=== PATIENT | male | born 1985 ===

== ENCOUNTER 2016-10-02 05:24 | Emergency (ER) | payer MEDICAID ==
[2016-10-02 05:24] VITALS: BMI 31.4
[2016-10-02 05:44] VITALS: BP 150/91; PULSE 109; RESP 16; TEMP 98; O2SAT 99
--- NOTE | 2016-10-02 06:28 | ED PDOC ---
HPI: Back Time Seen by Provider: 10/02/16 05:36 Chief Complaint (Nursing): Back Pain Chief Complaint (Provider): back pain History Per: Patient History/Exam Limitations: no limitations Onset/Duration Of Symptoms: Days (3) Current Symptoms Are (Timing): Still Present Severity: Moderate Pain Scale Rating Of: 8 Previous Symptoms: Chronic Pain Associated Symptoms: None Exacerbating Factor(s): Movement Additional Complaint(s): Patient is a 31 yo male with long standing history chronic back pain under pain management contract at [facility]. Patient on Fentanyl patch but reports having breakthrough pain. He denies any injury or fall. Pain is low back and upper back. Low back pain radiates to LE B/L. He denies urinary/fecal incontinence or retention. No numbness of LE or trouble with ambulation. Past Medical History Reviewed: Historical Data, Nursing Documentation, Vital Signs Vital Signs: Last Vital Signs Temp 98.0 F 10/02/16 05:40 Pulse 109 H 10/02/16 05:40 Resp 16 10/02/16 05:40 BP 150/91 H 10/02/16 05:40 Pulse Ox 99 10/02/16 05:40 - Medical History PMH: Back Problems, Hypothyroidism, Pancreatitis, Chronic Kidney Disease ( kidney cyst) - Surgical History Surgical History: Back Surgery (x2), Endoscopy - Family History Family History: States: Unknown Family Hx - Immunization History Hx Tetanus Toxoid Vaccination: No Hx Influenza Vaccination: No Hx Pneumococcal Vaccination: No - Home Medications Home Medications: Ambulatory Orders Medication Instructions Recorded Levothyroxine Sodium [Unithroid] 25 mcg PO DAILY 04/23/16 Pantoprazole [Protonix] 40 mg PO DAILY 04/23/16 Dicyclomine [Bentyl] 20 mg PO TID #21 tab 07/08/16 Ondansetron ODT [Zofran ODT] 4 mg PO Q8 PRN #10 odt 07/08/16 - Allergies Allergies/Adverse Reactions: Allergies Allergy/AdvReac Type Severity Reaction Status Date / Time No Known Allergies Allergy Verified 07/08/16 01:21 Review of Systems Musculoskeletal: Positive for: Back Pain Physical Exam - Reviewed Nursing Documentation Reviewed: Yes - Physical Exam Appears: Positive for: Uncomfortable Head Exam: Positive for: ATRAUMATIC, NORMOCEPHALIC Skin: Positive for: Normal Color, Warm, Dry Eye Exam: Positive for: Normal appearance, EOMI, PERRL ENT: Positive for: Normal ENT Inspection Respiratory: Positive for: Normal Breath Sounds. Negative for: Crackles, Rales , Wheezing Gastrointestinal/Abdominal: Positive for: Normal Exam, Bowel Sounds, Soft. Negative for: Tenderness Back: Positive for: Normal Inspection, Muscle Spasm. Negative for: L CVA Tenderness, R CVA Tenderness, Vertebral Tenderness Neurologic/Psych: Positive for: Alert, Oriented. Negative for: Motor/Sensory Deficits - ECG O2 Sat by Pulse Oximetry: 99 Medical Decision Making Medical Decision Makin31 year old male with chronic back pain Morphine 5mg IM ordered. Provider explained at length risks of opiate dependency and need for him to refer to his painter and decorator for pain issues. Patient expressed understanding. Dx Chronic Back Pain Stable Disposition - Clinical Impression Clinical Impression: Exacerbation of chronic back pain - Patient ED Disposition Is Patient to be Admitted: No - Disposition Disposition: Routine/Home Disposition Time: 06:31 Condition: STABLE Instructions: Chronic Pain (ED)
== END 2016-10-02 07:16 | disposition home or self-care (01) ==
LOC: H.ER 05:24
DX: M54.9 Dorsalgia, unspecified (principal); N18.9 Chronic kidney disease, unspecified; E03.9 Hypothyroidism, unspecified

== ENCOUNTER 2016-12-04 01:00 | Emergency (ER) | payer MEDICAID ==
[2016-12-04 01:01] VITALS: BMI 31.4
[2016-12-04 01:44] VITALS: BP 160/98; PULSE 102; RESP 18; TEMP 99; O2SAT 99
[2016-12-04] MEDS ORDERED: Sodium Chloride 0.9% 1,000 ML IV STA (02:06)
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
--- NOTE | 2016-12-04 09:06 | CT ---
PROCEDURE: CT HEAD WITHOUT CONTRAST. HISTORY: headache COMPARISON: None available. TECHNIQUE: Axial computed tomography images were obtained through the head/brain without intravenous contrast. Radiation dose: Total exam DLP = 842.01 mGy-cm. This CT exam was performed using one or more of the following dose reduction techniques: Automated exposure control, adjustment of the mA and/or kV according to patient size, and/or use of iterative reconstruction technique. FINDINGS: HEMORRHAGE: No intracranial hemorrhage. BRAIN: No mass effect or edema. No atrophy or chronic microvascular ischemic changes. Please note that MRI with diffusion imaging is more sensitive in the detection of acute ischemic event. VENTRICLES: No hydrocephalus. CALVARIUM: Unremarkable. PARANASAL SINUSES: Unremarkable as visualized. No significant inflammatory changes. MASTOID AIR CELLS: Unremarkable as visualized. No inflammatory changes. OTHER FINDINGS: None. IMPRESSION: No acute intracranial pathology identified. Preliminary impression was provided by virtual radiologic.
== END 2016-12-04 03:43 | disposition home or self-care (01) ==
LOC: H.ER 01:00
DX: G43.909 Migraine, unspecified, not intractable, without status migrainosus (principal); R11.0 Nausea; K85.90 Acute pancreatitis without necrosis or infection, unspecified

== ENCOUNTER 2016-12-22 23:36 | Emergency (ER) | payer MEDICAID ==
[2016-12-22 23:49] VITALS: BMI 32.1
[2016-12-22 23:52] VITALS: BP 145/94; PULSE 108; RESP 15; TEMP 98.1; O2SAT 100
[2016-12-23] MEDS ORDERED: Magnesium Sulfate 2 GM in Sodium Chloride 0.9% 100 ML IV STA (00:01)
[2016-12-23] MEDS ORDERED: levETIRAcetam 500 MG in Sodium Chloride 0.9% 100 ML IVPB ONE (00:02)
[2016-12-23] MEDS ORDERED: Magnesium Sulfate 2 gm/50 ml 2 GM/50 ML BAG ONE (00:03)
[2016-12-23] MEDS ORDERED: Sodium Chloride 0.9% 1,000 ML IV STA (00:10)
[2016-12-23 00:41] LABS: BASO # 0.1 K/uL (0.0-0.2); EOS # 0.2 K/uL (0.0-0.7); EOS % 1.2 % (0.0-4.0); HEMATOCRIT 49.8 % (35.0-51.0); LYMPH # 2.6 K/uL (1.0-4.3); LYMPH % 19.2 % (20.0-40.0); MEAN CELL VOLUME 85.4 fl (80.0-94.0); MEAN CORPUSCULAR HEMOGLOBIN 28.9 pg (27.0-31.0); MEAN CORPUSCULAR HGB CONC 33.8 g/dL (33.0-37.0); MEAN PLATELET VOLUME 8.1 fl (7.2-11.7); MONO % 7.5 % (0.0-10.0); NEUT # 9.6 K/uL (1.8-7.0); NEUT % 71.1 % (50.0-75.0); RED CELL DISTRIBUTION WIDTH 13.5 % (11.5-14.5); WHITE BLOOD COUNT 13.6 K/uL (4.8-10.8)
[2016-12-23 00:53] LABS: ALB/GLOB RATIO 1.5 (1.0-2.1); ALKALINE PHOSPHATASE 104 U/L (38-126); ALT/SGPT 124 U/L (21-72); AST/SGOT 56 U/L (17-59); BILIRUBIN,TOTAL 0.8 mg/dl (0.2-1.3); BLOOD UREA NITROGEN 15 mg/dl (9-20); CALCIUM 9.6 mg/dL (8.4-10.2); CARBON DIOXIDE 25 mmol/L (22-30); CHLORIDE 100 mmol/L (98-107); GFR AFRICAN-AMERICAN > 60; GLUCOSE,RANDOM 178 mg/dL (75-110); POTASSIUM 3.5 MMOL/L (3.6-5.0); SODIUM 138 mmol/l (132-148); TOTAL PROTEIN 8.4 G/DL (6.3-8.2)
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
== END 2016-12-23 01:29 | disposition home or self-care (01) ==
LOC: H.ER 23:36
DX: G43.909 Migraine, unspecified, not intractable, without status migrainosus (principal); M54.9 Dorsalgia, unspecified

== ENCOUNTER 2017-09-22 12:10 | Emergency (ER) | payer MEDICAID, OTHER ==
[2017-09-22 12:11] VITALS: BMI 32.1
[2017-09-22 12:29] VITALS: BP 150/102; PULSE 110; RESP 20; TEMP 98; O2SAT 98
--- NOTE | 2017-09-22 14:03 | RAD ---
PROCEDURE: Radiographs of the Left Shoulder HISTORY: pain s/p fall COMPARISON: No prior. FINDINGS: BONES: Normal. No fracture. JOINTS: Normal. Glenohumeral and acromioclavicular joints preserved. No osteoarthritis. SOFT TISSUES: Normal. OTHER FINDINGS: None. IMPRESSION: Normal radiographs of the left shoulder.
--- NOTE | 2017-09-22 14:11 | RAD ---
PROCEDURE: Left Hip X-ray Radiographs. HISTORY: left hip pain COMPARISON: None. FINDINGS: BONES: Normal. No fracture. Note made of apparent discectomy with in situ prostatic disc L4-L5 level. There also has been posterior fixation accomplished by placement of bilateral short segment Garcia rods which are attached to the pedicles of the L4 and L5 segments. . JOINTS: Normal. SOFT TISSUES: Normal. OTHER FINDINGS: None. IMPRESSION: No evidence of acute displaced fracture nor dislocation. Discectomy fusion and posterior fixation L4-L5 level as above
--- NOTE | 2017-09-22 14:12 | RAD ---
PROCEDURE: Right Wrist Radiographs. . HISTORY: Right wrist pain COMPARISON: Comparison made with right hand radiographs 04/19/2015 FINDINGS: BONES: No evidence of acute displaced fracture nor dislocation. The osseous structures intact. JOINTS: Joint spaces preserved. No significant osteoarthritis SOFT TISSUES: Normal. OTHER FINDINGS: None. IMPRESSION: No evidence acute displaced fracture nor dislocation.
--- NOTE | 2017-09-22 14:26 | ED PDOC ---
HPI:Nausea, Vomiting, Diarrhea Time Seen by Provider: 09/22/17 12:35 Chief Complaint (Nursing): Upper Extremity Problem/Injury Chief Complaint (Provider): Let shoulder, right wrist and left hip pain History Per: Patient History/Exam Limitations: no limitations Onset/Duration Of Symptoms: Days Current Symptoms Are (Timing): Still Present Additional Complaint(s): 32 yo male with history of low back pain presents with left shoulder, left hip and right wist pain for 1 ay after falling last night. Pt states he fell down step last night and the pain was improved after taking his Dilaudid at home. Pt state he took it again this morning but it did not help the pain. No numbness/ tingling. No bladder or bowel incontinence. Past Medical History Reviewed: Historical Data, Nursing Documentation, Vital Signs Vital Signs: Last Vital Signs Temp 98.0 F 09/22/17 12:26 Pulse 110 H 09/22/17 12:26 Resp 20 09/22/17 12:26 BP 150/102 H 09/22/17 12:26 Pulse Ox 98 09/22/17 12:26 - Medical History PMH: Back Problems, Hypothyroidism, Pancreatitis, Chronic Kidney Disease ( kidney cyst) - Surgical History Surgical History: Back Surgery (x2), Endoscopy - Family History Family History: States: Unknown Family Hx - Living Arrangements Living Arrangements: Alone - Social History Current smoker - smoking cessation education provided: No - Immunization History Hx Tetanus Toxoid Vaccination: No Hx Influenza Vaccination: No Hx Pneumococcal Vaccination: No - Home Medications Home Medications: Ambulatory Orders Medication Instructions Recorded Levothyroxine Sodium [Unithroid] 25 mcg PO DAILY 04/23/16 Pantoprazole [Protonix] 40 mg PO DAILY 04/23/16 Dicyclomine [Bentyl] 20 mg PO TID #21 tab 07/08/16 Ondansetron ODT [Zofran ODT] 4 mg PO Q8 PRN #10 odt 07/08/16 Acetaminophen/Butalbital/Caf 1 - 2 tab PO Q6 PRN #20 tab 12/04/16 [Fioricet] - Allergies Allergies/Adverse Reactions: Allergies Allergy/AdvReac Type Severity Reaction Status Date / Time amoxicillin Allergy VOMITING Verified 09/22/17 12:25 Review of Systems ROS Statement: Except As Marked, All Systems Reviewed And Found Negative Constitutional: Negative for: Fever, Chills Cardiovascular: Negative for: Chest Pain Respiratory: Negative for: Cough, Shortness of Breath Musculoskeletal: Positive for: Shoulder Pain, Leg Pain Skin: Negative for: Rash Physical Exam - Reviewed Nursing Documentation Reviewed: Yes Vital Signs Reviewed: Yes - Physical Exam Appears: Positive for: Well, Non-toxic, No Acute Distress Head Exam: Positive for: ATRAUMATIC, NORMAL INSPECTION, NORMOCEPHALIC Skin: Positive for: Normal Color, Warm, DRY Eye Exam: Positive for: Normal appearance ENT: Positive for: Normal ENT Inspection Neck: Positive for: Normal, Painless ROM Cardiovascular/Chest: Positive for: Regular Rate, Rhythm Respiratory: Positive for: Normal Breath Sounds. Negative for: Accessory Muscle Use, Respiratory Distress Back: Positive for: Normal Inspection Extremity: Positive for: Normal ROM Neurologic/Psych: Positive for: Alert, Oriented - ECG O2 Sat by Pulse Oximetry: 98 Disposition - Clinical Impression Clinical Impression: Left shoulder pain, Right wrist pain, Left hip pain - Patient ED Disposition Is Patient to be Admitted: No Counseled Patient/Family Regarding: Diagnosis, Need For Followup - Disposition Referrals: [facility] [Outside] Marc Kramer MD [Medical Doctor] - Disposition: Routine/Home Disposition Time: 14:30 Condition: GOOD Instructions: Shoulder Pain (DC) Forms: ilab (Ukrainian)
== END 2017-09-22 14:40 | disposition home or self-care (01) ==
LOC: H.ER 12:10
DX: M25.512 Pain in left shoulder (principal); M25.552 Pain in left hip; M25.531 Pain in right wrist; W10.8XXA Fall (on) (from) other stairs and steps, initial encounter; Y92.89 Other specified places as the place of occurrence of the external cause; E03.9 Hypothyroidism, unspecified; K85.90 Acute pancreatitis without necrosis or infection, unspecified; N18.9 Chronic kidney disease, unspecified
CPT/HCPCS: 73030; 73110; 73502; 96372; 99283; J1885

== ENCOUNTER 2018-06-21 00:36 | Emergency (ER) | payer MEDICAID ==
[2018-06-21 00:36] VITALS: BMI 32.1
[2018-06-21 01:09] VITALS: RESP 16; O2SAT 98
--- NOTE | 2018-06-21 02:05 | ED PDOC ---
HPI: Abdomen Time Seen by Provider: 06/21/18 01:17 Chief Complaint (Nursing): Abdominal Pain Chief Complaint (Provider): Abdominal Pain History Per: Patient History/Exam Limitations: no limitations Onset/Duration Of Symptoms: Hrs (9) Location Of Pain/Discomfort: Epigastric Associated Symptoms: Chills, Nausea, Vomiting, Diarrhea Additional Complaint(s): 33 y/o male with history of pancreatitis, hypothyroidism presents to ED complaining of abdominal pain, onset around 17:15. Patient reports the pain is sharp and constant. He has had several episodes of vomiting and watery diarrhea. Patient states that he has been completely unable to tolerate PO and when he tried to eat a snack or dinner he immediately vomited the food. He took Pepcid and Tums with no relief. Patient additionally reports sweats, chills, and nausea. Denies fever. Patient takes Diazepam, Morphine and medication for his hypothyroid at home.\ PMD: @ [facility] Affairs Past Medical History Reviewed: Historical Data, Nursing Documentation, Vital Signs Vital Signs: Last Vital Signs Temp 98.6 F 06/21/18 01:06 Pulse 98 H 06/21/18 01:06 Resp 16 06/21/18 01:06 BP 148/95 H 06/21/18 01:06 Pulse Ox 98 06/21/18 01:06 - Medical History PMH: Back Problems, Hypothyroidism, Pancreatitis, Chronic Kidney Disease (kidney cyst) - Surgical History Surgical History: Back Surgery (x2), Endoscopy - Family History Family History: States: Unknown Family Hx - Social History Alcohol: None - Immunization History Hx Tetanus Toxoid Vaccination: No Hx Influenza Vaccination: No Hx Pneumococcal Vaccination: No - Home Medications Home Medications: Ambulatory Orders Medication Instructions Recorded Levothyroxine Sodium [Unithroid] 25 mcg PO DAILY 04/23/16 Dicyclomine [Bentyl] 20 mg PO TID #21 tab 07/08/16 Acetaminophen/Butalbital/Caf 1 - 2 tab PO Q6 PRN #20 tab 12/04/16 [Fioricet] Ondansetron ODT [Zofran ODT] 4 mg PO Q8 PRN #10 odt 06/21/18 Pantoprazole [Protonix] 40 mg PO DAILY #30 ect 06/21/18 - Allergies Allergies/Adverse Reactions: Allergies Allergy/AdvReac Type Severity Reaction Status Date / Time amoxicillin Allergy VOMITING Verified 09/22/17 12:25 Review of Systems ROS Statement: Except As Marked, All Systems Reviewed And Found Negative Constitutional: Positive for: Chills, Sweats. Negative for: Fever Gastrointestinal: Positive for: Nausea, Vomiting, Abdominal Pain, Diarrhea Physical Exam - Reviewed Nursing Documentation Reviewed: Yes Vital Signs Reviewed: Yes - Physical Exam Appears: Positive for: Non-toxic, No Acute Distress Head Exam: Positive for: ATRAUMATIC, NORMOCEPHALIC Skin: Positive for: Normal Color, Warm, Dry Eye Exam: Positive for: EOMI, Normal appearance, PERRL ENT: Positive for: Normal ENT Inspection Neck: Positive for: Normal, Painless ROM, Supple Cardiovascular/Chest: Positive for: Regular Rate, Rhythm. Negative for: Murmur Respiratory: Positive for: Normal Breath Sounds. Negative for: Respiratory Distress Gastrointestinal/Abdominal: Positive for: Tenderness (epigastric) Extremity: Positive for: Normal ROM. Negative for: Pedal Edema, Deformity Neurologic/Psych: Positive for: Alert, Oriented (x3), Gait (steady). Negative for: Motor/Sensory Deficits - Laboratory Results Result Diagrams: 06/21/18 02:44 06/21/18 02:44 - ECG O2 Sat by Pulse Oximetry: 98 (RA) Pulse Ox Interpretation: Normal - Progress Re-evaluation Time: 04:40 Condition: Re-examined, Improved Medical Decision Making Medical Decision Making: Time: 02:20 Initial Impression: Pancreatitis, gall bladder disease, gastritis, and viral gastroenteritis. Initial Plan: * CT Abd and Pelvis * Alcohol Serum * CMP * Lipase * Urine dipstick * CBC w/ diff * Toradol * IV Fluids * Zofran 04:15 CT Abd Pelvis COMMENTS: The liver is of decreased attenuation without mass or defect. There is no intra or extrahepatic biliary ductal dilatation. The spleen is normal. The gallbladder is within normal limits. The pancreas is of normal contour and attenuation characteristics. There is no evidence of adrenal mass. 2.3 cm left renal simple cyst. Both kidneys demonstrate prompt and equal nephrograms. The kidneys are normal in size, shape and configuration. There is no evidence of renal or ureteral mass. No renal or ureteral calculi are identified. There is no hydroureter or hydronephrosis. No evidence for appendicitis. There is no bowel wall thickening. No evidence for small or large bowel obstruction. There is no evidence of abdominal ascites or lymphadenopathy. There is no evidence of intrinsic or extrinsic bladder mass. There is no pelvic ascites or lymphadenopathy. Images of the lung bases show no evidence of pleural or parenchymal mass. There are no pleural effusions. The bony structures are free of lytic or blastic lesions. IMPRESSION: Hepatic steatosis. No evidence of acute abdominal or pelvic pathology. Thank you for your kind referral of this patient. Scribe Attestation: Documented by Aguila Pond acting as a scribe for Rossana Manzano MD. Provider Scribe Attestation: All medical record entries made by the Scribe were at my direction and personally dictated by me. I have reviewed the chart and agree that the record accurately reflects my personal performance of the history, physical exam, medical decision making, and the department course for this patient. I have also personally directed, reviewed, and agree with the discharge instructions and disposition. Disposition - Clinical Impression Clinical Impression: Abdominal pain - Patient ED Disposition Is Patient to be Admitted: No Doctor Will See Patient In The: Office Counseled Patient/Family Regarding: Studies Performed, Diagnosis, Need For Followup - Disposition Referrals: Keron Suárez MD, PhD [Staff Provider] - Disposition: Routine/Home Disposition Time: 04:46 Condition: GOOD Additional Instructions: NEEL ROSENBERG, thank you for letting us take care of you today. Your provider was Rossana Manzano MD and you were treated for ABD PAIN. The emergency medical care you received today was directed at your acute symptoms. If you were prescribed any medication, please fill it and take as directed. It may take several days for your symptoms to resolve. Return to the Emergency Department if your symptoms worsen, do not improve, or if you have any other problems. Please contact your doctor or call one of the physicians/clinics you have been referred to that are listed on the Patient Visit Information form that is included in your discharge packet. Bring any paperwork you were given at discharge with you along with any medications you are taking to your follow up visit. Our treatment cannot replace ongoing medical care by a primary care provider outside of the emergency department. Thank you for allowing the [facility] team to be part of your care today. If you had an X-Ray or CT scan: A Radiologist will review the ED reading if any change in treatment is needed we will contact you. If you had a blood, urine, or wound culture: It will take several days for the results, if any change in treatment is needed we will contact you. If you had an STI test: It will take 48 hours for the results. Please call after 1 week if you have not heard back. Prescriptions: Ondansetron ODT [Zofran ODT] 4 mg PO Q8 PRN #10 odt PRN Reason: Nausea/Vomiting Pantoprazole [Protonix] 40 mg PO DAILY #30 ect Instructions: Stomach Ache and Stomach Upset
[2018-06-21] MEDS ORDERED: Sodium Chloride 0.9% 1,000 ML IV STA (02:25)
[2018-06-21 02:51] LABS: BASO # 0.1 K/uL (0.0-0.2); EOS # 0.2 K/uL (0.0-0.7); EOS % 1.6 % (0.0-4.0); HEMOGLOBIN 15.6 g/dL (12.0-18.0); LYMPH # 2.5 K/uL (1.0-4.3); LYMPH % 23.2 % (20.0-40.0); MEAN CELL VOLUME 88.2 fl (80.0-94.0); MEAN CORPUSCULAR HEMOGLOBIN 30.2 pg (27.0-31.0); MEAN CORPUSCULAR HGB CONC 34.2 g/dL (33.0-37.0); MEAN PLATELET VOLUME 8.3 fl (7.2-11.7); NEUT # 7.1 K/uL (1.8-7.0); NEUT % 65.2 % (50.0-75.0); NRBC % 0.1 % (0.0-0.0); RBC 5.16 Mil/uL (4.40-5.90); RED CELL DISTRIBUTION WIDTH 13.5 % (11.5-14.5); WHITE BLOOD COUNT 10.9 K/uL (4.8-10.8)
[2018-06-21 03:24] LABS: ALB/GLOB RATIO 1.4 (1.0-2.1); ALBUMIN 4.5 g/dL (3.5-5.0); ALT/SGPT 77 U/L (21-72); AST/SGOT 46 U/L (17-59); BLOOD UREA NITROGEN 15 mg/dl (9-20); CALCIUM 9.6 mg/dL (8.4-10.2); GFR NON-AFRICAN AMERICAN > 60; LIPASE 90 U/L (23-300)
[2018-06-21] MEDS ORDERED: Sodium Chloride 0.9% 50 ML IV ONE (03:29)
[2018-06-21] MEDS ORDERED: Iohexol 300 100 ML IJ ONE (03:29)
[2018-06-21] MEDS ORDERED: Morphine 4 MG/ML VIAL IVP ONE (04:07)
[2018-06-21] MEDS ORDERED: Morphine 4 MG/ML VIAL ONE (04:13)
[2018-06-21 06:34] VITALS: BP 137/89; PULSE 91; TEMP 98.1
--- NOTE | 2018-06-21 14:05 | CT ---
Date of service: 06/21/2018 PROCEDURE: CT Abdomen and Pelvis with contrast HISTORY: epigastric pain COMPARISON: 07/08/2016 CT abdomen and pelvis. TECHNIQUE: Intravenous contrast dose: 95 cc Omnipaque 300 Radiation dose: Total exam DLP = 947.62 mGy-cm. This CT exam was performed using one or more of the following dose reduction techniques: Automated exposure control, adjustment of the mA and/or kV according to patient size, and/or use of iterative reconstruction technique. FINDINGS: LOWER THORAX: Unremarkable. LIVER: Hepatic steatosis. No focal masses. No intrahepatic bile duct dilatation or perihepatic ascites. GALLBLADDER AND BILE DUCTS: Unremarkable. PANCREAS: Unremarkable. No gross lesion or ductal dilatation. SPLEEN: Unremarkable. ADRENALS: Unremarkable. No mass. KIDNEYS AND URETERS: Unremarkable. No hydronephrosis. No solid mass. Incidental finding(s): Stable bilateral simple renal cysts. VASCULATURE: Unremarkable. No aortic aneurysm. No atherosclerotic calcification or mural plaque present. BOWEL: Unremarkable. No obstruction. No gross mural thickening. APPENDIX: Normal appendix. PERITONEUM: Unremarkable. No free fluid. No free air. LYMPH NODES: Unremarkable. No enlarged lymph nodes. BLADDER: Unremarkable. REPRODUCTIVE: Unremarkable. BONES: No acute fracture. OTHER FINDINGS: None. IMPRESSION: No significant or acute findings to account for/ related to the clinical presentation. Additional benign and/or incidental findings described above. No significant interval change compared to the prior examination(s). Concordant results (preliminary interpretation) provided by [employer]. Procedure Completed: 03:43. Preliminary Report: Dictated and Authenticated: 04:15. Final Interpretation: 14:01.
== END 2018-06-21 04:55 | disposition home or self-care (01) ==
LOC: H.ER 00:36
DX: R10.13 Epigastric pain (principal); E03.9 Hypothyroidism, unspecified; N28.1 Cyst of kidney, acquired
CPT/HCPCS: 74177; 80053; 80320; 83690; 85025; 96374; 96375; 99283; J1885; J2270; J2405; J7030; Q9967

== ENCOUNTER 2018-10-22 00:51 | Emergency (ER) | payer MEDICAID ==
[2018-10-22 00:51] VITALS: BMI 32.1
[2018-10-22 01:20] VITALS: O2SAT 98
[2018-10-22] MEDS ORDERED: Morphine 4 MG/ML VIAL IVP ONE (01:47)
[2018-10-22] MEDS ORDERED: Sodium Chloride 0.9% 1,000 ML IV STA (01:47)
[2018-10-22] MEDS ORDERED: Iohexol 240 (50 ml) PO ONE (01:58)
[2018-10-22] MEDS ORDERED: Morphine 4 MG/ML VIAL ONE (02:11)
--- NOTE | 2018-10-22 02:12 | ED PDOC ---
HPI: Abdomen Time Seen by Provider: 10/22/18 01:26 Chief Complaint (Nursing): Abdominal Pain Chief Complaint (Provider): Abdominal Pain History Per: Patient History/Exam Limitations: no limitations Onset/Duration Of Symptoms: Days (x1 week) Location Of Pain/Discomfort: Epigastric (Left) Associated Symptoms: Fever, Chills. denies: Nausea, Vomiting Additional Complaint(s): Lon Gan is a 33 year old male with a past medical history of chronic back pain and pancreatitis, who presents to the emergency department complaining of abdominal pain, onset x1 week. Patient states he is currently taking Dilaudid 4 mg x2 daily that has been prescribed to him by his pain management doctor, Dr. Jason in [facility]. Patient states he is not normally constipated by medication and that he is currently also taking Colace. He reports he has been able to pass gas and has the sensation to move bowels but has been unable to pass it. Patient's pain is worse on left epigastric side. He does report to have nausea but no vomiting. Patient has been eating normally. Pain Management: Dr. Jason in [place], [place] Past Medical History Reviewed: Historical Data, Nursing Documentation, Vital Signs Vital Signs: Last Vital Signs Temp 98 F 10/22/18 01:15 Pulse 106 H 10/22/18 01:15 Resp 16 10/22/18 01:15 BP 131/92 H 10/22/18 01:15 Pulse Ox 98 10/22/18 01:15 - Medical History PMH: Back Problems, Hypothyroidism, Pancreatitis, Chronic Kidney Disease (kidney cyst) - Surgical History Surgical History: Back Surgery (x2), Endoscopy Other surgeries: microdiscectomy of back - Family History Family History: States: Unknown Family Hx - Immunization History Hx Tetanus Toxoid Vaccination: No Hx Influenza Vaccination: No Hx Pneumococcal Vaccination: No - Home Medications Home Medications: Ambulatory Orders Medication Instructions Recorded Levothyroxine Sodium [Unithroid] 25 mcg PO DAILY 04/23/16 Dicyclomine [Bentyl] 20 mg PO TID #21 tab 07/08/16 Acetaminophen/Butalbital/Caf 1 - 2 tab PO Q6 PRN #20 tab 12/04/16 [Fioricet] Ondansetron ODT [Zofran ODT] 4 mg PO Q8 PRN #10 odt 06/21/18 Pantoprazole [Protonix] 40 mg PO DAILY #30 ect 06/21/18 Lactulose 20 gm PO QAM PRN #8 oz 10/22/18 Polyethylene Glycol 3350 [Miralax] 17 g PO QAM PRN #7 pkg 10/22/18 - Allergies Allergies/Adverse Reactions: Allergies Allergy/AdvReac Type Severity Reaction Status Date / Time amoxicillin Allergy VOMITING Verified 09/22/17 12:25 Review of Systems ROS Statement: Except As Marked, All Systems Reviewed And Found Negative Gastrointestinal: Positive for: Nausea, Abdominal Pain, Constipation. Negative for: Vomiting Physical Exam - Reviewed Nursing Documentation Reviewed: Yes Vital Signs Reviewed: Yes - Physical Exam Appears: Positive for: Uncomfortable Head Exam: Positive for: ATRAUMATIC, NORMOCEPHALIC Skin: Positive for: Normal Color, Warm, Dry Eye Exam: Positive for: Normal appearance, EOMI, PERRL ENT: Positive for: Normal ENT Inspection Neck: Positive for: Normal, Painless ROM, Supple Cardiovascular/Chest: Positive for: Regular Rate, Rhythm. Negative for: Murmur Respiratory: Positive for: Normal Breath Sounds. Negative for: Respiratory Distress Gastrointestinal/Abdominal: Positive for: Tenderness (epigastric and LUQ) Back: Positive for: Normal Inspection. Negative for: L CVA Tenderness, R CVA Tenderness, Vertebral Tenderness Extremity: Positive for: Normal ROM. Negative for: Pedal Edema, Deformity Neurological/Psych: Positive for: Awake, Alert, Oriented. Negative for: Motor/Sensory Deficits - Laboratory Results Result Diagrams: 10/22/18 02:02 10/22/18 02:02 - ECG O2 Sat by Pulse Oximetry: 98 (RA) Pulse Ox Interpretation: Normal Medical Decision Making Medical Decision Making: Time: 014 Impression: 33 year old male, presenting with abdominal pain and constipation. Labs and CT ordered. Plan: --CT abd and pelvis PO and IV contrast --CMP --Lipase --ED urine dipstick --CBC with differential --Urinalysis --Heplock Insertion --Omnipaque 240 (50 ml) PO --Morphine 4 mg IVP --Sodium chloride 1,000 ml --Zofran 4 mg IV Time: 05 CT findings: CT SCAN OF THE ABDOMEN AND PELVIS WITH CONTRAST. CLINICAL HISTORY: Epigastric pain. COMPARISON: 06/21/2018 03:40 AM EST: CT\SR: ABD PELVIS IV CONTRAST ONLY TECHNIQUE: Multiple axial and coronal CT images were obtained through the abdomen and pelvis after administration of intravenous contrast material. COMMENTS: The liver is of decreased attenuation without mass or defect. There is no intra or extrahepatic biliary ductal dilatation. The spleen is normal. The gallbladder is within normal limits. The pancreas is of normal contour and attenuation characteristics. There is no evidence of adrenal mass. 2.3 cm left renal simple cyst. Both kidneys demonstrate prompt and equal nephrograms. The kidneys are normal in size, shape and configuration. There is no evidence of renal or ureteral mass. No renal or ureteral calculi are identified. There is no hydroureter or hydronephrosis. No evidence for appendicitis. There is no bowel wall thickening. No evidence for small or large bowel obstruction. There is no evidence of abdominal ascites or lymphadenopathy. There is no evidence of intrinsic or extrinsic bladder mass. There is no pelvic ascites or lymphadenopathy. Images of the lung bases show no evidence of pleural or parenchymal mass. There are no pleural effusions. The bony structures are free of lytic or blastic lesions. IMPRESSION: Hepatic steatosis. No evidence of acute abdominal or pelvic pathology. Time: 0524 --Labs show no clinically significant abnormalities. Scribe Attestation: Documented by Aj Jiang, acting as a scribe Reyna Zepeda MD. Provider Scribe Attestation: All medical record entries made by the Scribe were at my direction and personally dictated by me. I have reviewed the chart and agree that the record accurately reflects my personal performance of the history, physical exam, medical decision making, and the department course for this patient. I have also personally directed, reviewed, and agree with the discharge instructions and disposition. Disposition - Clinical Impression Clinical Impression: Constipation - Disposition Disposition Time: 05:40 Condition: STABLE Prescriptions: Lactulose 20 gm PO QAM PRN #8 oz PRN Reason: Constipation Polyethylene Glycol 3350 [Miralax] 17 g PO QAM PRN #7 pkg PRN Reason: Constipation Instructions: Constipation in Adults Forms: [facility] (Spanish)
[2018-10-22 02:30] LABS: BASO # 0.1 K/uL (0.0-0.2); BASO % 0.9 % (0.0-2.0); EOS # 0.2 K/uL (0.0-0.7); EOS % 1.6 % (0.0-4.0); HEMOGLOBIN 16.4 g/dL (12.0-18.0); LYMPH # 2.1 K/uL (1.0-4.3); LYMPH % 17.1 % (20.0-40.0); MEAN CELL VOLUME 84.4 fl (80.0-94.0); MEAN CORPUSCULAR HEMOGLOBIN 29.3 pg (27.0-31.0); MEAN CORPUSCULAR HGB CONC 34.7 g/dL (33.0-37.0); MEAN PLATELET VOLUME 8.5 fl (7.2-11.7); MONO # 1.4 K/uL (0.0-0.8); MONO % 11.3 % (0.0-10.0); NEUT # 8.6 K/uL (1.8-7.0); NEUT % 69.1 % (50.0-75.0); NRBC % 0.1 % (0.0-0.0); RBC 5.59 Mil/uL (4.40-5.90); RED CELL DISTRIBUTION WIDTH 13.6 % (11.5-14.5); WHITE BLOOD COUNT 12.4 K/uL (4.8-10.8)
[2018-10-22 02:47] LABS: ALB/GLOB RATIO 1.5 (1.0-2.1); ALBUMIN 4.8 g/dL (3.5-5.0); ALT/SGPT 151 U/L (21-72); AST/SGOT 68 U/L (17-59); BLOOD UREA NITROGEN 20 mg/dl (9-20); CALCIUM 9.9 mg/dL (8.4-10.2); GFR NON-AFRICAN AMERICAN > 60; LIPASE 168 U/L (23-300)
[2018-10-22] MEDS ORDERED: Iohexol 300 100 ML IJ ONE (04:39)
[2018-10-22] MEDS ORDERED: Sodium Chloride 0.9% 50 ML IV ONE (04:39)
[2018-10-22 05:52] VITALS: BP 122/78; PULSE 92; RESP 18; TEMP 98.3
[2018-10-22 06:01] LABS: SQUAMOUS EPITHIAL < 1 /hpf (0-5); URINE BILIRUBIN NEGATIVE (NEGATIVE); URINE BLOOD NEGATIVE (NEGATIVE); URINE CLARITY CLEAR (Clear); URINE COLOR YELLOW (YELLOW); URINE GLUCOSE (UA) 150 mg/dL (NEGATIVE); URINE LEUKOCYTE ESTERASE NEG Leu/uL (Negative); URINE PROTEIN 30 mg/dL (NEGATIVE); URINE UROBILINOGEN 0.2-1.0 mg/dL (0.2-1.0)
--- NOTE | 2018-10-22 09:11 | CT ---
Date of service: 10/22/2018 PROCEDURE: CT Abdomen and Pelvis with contrast HISTORY: Abdominal pain, constipation COMPARISON: 06/21/2018. TECHNIQUE: CT scan of the abdomen and pelvis was performed after administration of intravenous contrast. Oral contrast was administered. Coronal and sagittal reformatted images were obtained. Contrast dose: 95 mL Omnipaque 300 Radiation dose: Total exam DLP = 891.64 mGy-cm. This CT exam was performed using one or more of the following dose reduction techniques: Automated exposure control, adjustment of the mA and/or kV according to patient size, and/or use of iterative reconstruction technique. FINDINGS: LOWER THORAX: The visualized lungs are clear. LIVER: Mild hepatomegaly and diffuse fatty liver. Normal homogeneous enhancement. No gross lesion or ductal dilatation. GALLBLADDER AND BILE DUCTS: Well distended. No calcified gallstones, wall thickening or pericholecystic fluid. PANCREAS: Normal in size with homogeneous enhancement. No gross lesion or ductal dilatation. SPLEEN: Normal in size and appearance. ADRENALS: No discrete nodule. KIDNEYS AND URETERS: Normal in size with homogeneous enhancement. There are stable solitary cysts in the upper pole of each kidney, larger on the left. No hydronephrosis. No solid mass. VASCULATURE: No aortic aneurysm. There are no aortic atherosclerotic calcifications or mural plaque present. BOWEL: Evaluation of the bowel is limited in the absence of oral contrast. The small bowel loops are normal in caliber. There is large amount of stool in the ascending colon. The colon is grossly normal in appearance. No bowel wall thickening or obstruction. APPENDIX: Not distinctly identified however no inflammatory changes in the right lower quadrant. PERITONEUM: No free fluid. No free air. LYMPH NODES: There are subcentimeter lymph nodes in the right lower quadrant. BLADDER: Well distended and normal in appearance. REPRODUCTIVE: The uterus is normal in size. BONES: No acute fracture. Status post posterior spinal fixation in the lower lumbar spine. OTHER FINDINGS: None. IMPRESSION: No acute abdominal or pelvic abnormality. Subcentimeter lymph nodes in the right lower quadrant, nonspecific and likely reactive. Mild hepatomegaly and fatty liver. Stable cysts in the upper pole of the kidneys. A preliminary report was provided by [employer].
== END 2018-10-22 05:45 | disposition home or self-care (01) ==
LOC: H.ER 00:51
DX: K59.00 Constipation, unspecified (principal); E03.9 Hypothyroidism, unspecified
CPT/HCPCS: 74177; 80053; 81003; 83690; 85025; 96361; 96374; 96375; 96376; 99284; J2270; J2405; J7030; Q9966; Q9967